=== PATIENT | male | born 1965 | race Two or more races ===

== ENCOUNTER 2023-02-11 10:21 | Outpatient (CLI) | payer OTHER | END 2023-02-11 10:22 | disposition home or self-care (01) | LOC: NUCLEAR 10:21 | PROVIDERS: ATTEND Urology | DX: C64.1 Malignant neoplasm of right kidney, except renal pelvis (principal); C64.2 Malignant neoplasm of left kidney, except renal pelvis ==

== ENCOUNTER 2024-10-21 07:15 | Inpatient (IN) | payer OTHER ==
[~2024-10-21] VITALS: Ht 172.7 cm; Wt 98.9 kg
[2024-10-21] MEDS ORDERED: SYNTHROID125 MCG PO (08:48)
[2024-10-21] MEDS ORDERED: TAMS0.4C PO (08:48)
[2024-10-21 09:09] LABS: BASO % 0.5 % (0.1-1.2); EOS # 0.08 (0.04-0.54); EOS % 1.4 % (0.7-7.0); LYMPH # 1.62 (1.18-3.74); LYMPH % 27.9 % (19.3-53.1); MEAN PLATELET VOLUME 9.80 fl (9.4-12.4); MONO # 0.45 (0.24-0.82); MONO % 7.7 % (4.7-12.5); NEUT # 3.59 (1.56-6.13); NEUT % 61.8 % (34.0-71.1); RED CELL DISTRIBUTION WIDTH 13.0 % (11.6-14.4)
[2024-10-21 09:20] LABS: URINE APPEARANCE Clear; URINE BILIRRUBIN Negative (NEGATIVE); URINE BLOOD Negative; URINE COLOR Yellow; URINE GLUCOSE Negative (NEGATIVE); URINE KETONE Negative (NEGATIVE); URINE LEUKOCYTE Negative; URINE NITRATE Negative; URINE PROTEIN Negative (NEGATIVE); URINE UROBILINOGEN 1.0 E.U./dl
[2024-10-21 09:21] LABS: URINE BACTERIA 4.8 uL (0.0-1933); URINE RBC 3.5 uL (0.0-20.8)
[2024-10-21 09:25] VITALS: BP 108/74
[2024-10-21 09:27] LABS: COVID-19 AG NEGATIVE (NEGATIVE)
[2024-10-21 09:28] LABS: URINE CAST 0.00 uL (0.0-1.40); URINE EPITHELIAL CELLS 0.4 uL (0.0-38.8); URINE WBC 0.9 uL (0.0-23.2)
[2024-10-21 09:30] LABS: INR 1.0
[2024-10-21 10:21] LABS: BUN CREA RATIO 25.0 (7.0-25.0); CREATININE SERUM 0.84 mg/dL (0.70-1.30); GFR 92.89; GLUCOSE FASTING 84.0 mg/dL (65-100); OSMOLALITY SERUM 285.0 MOSM/KG (275-295)
[2024-10-21 11:40] LABS: RH POSITIVE
[2024-10-29] MEDS ORDERED: CEFAZOLIN SODIUM 1,000 MG VIAL IV SCH (09:58)
[2024-10-29] MEDS ORDERED: DEXTROSE 5 %-0.45 % SOD CHLORD 1,000 ML IV SCH (09:59)
[2024-10-29] MEDS ORDERED: ONDANSETRON HCL 2 MG/ML VIAL IV PRN (10:00)
[2024-10-29] MEDS ORDERED: MEPERIDINE HCL/PF 50 MG/ML VIAL IV PRN (10:00)
[2024-10-29] MEDS ORDERED: ENOXAPARIN SODIUM 40 MG/0.4 ML SYRINGE SUBCUTANEO ONE (12:15)
[2024-10-29] MEDS ORDERED: SIMETHICONE 125 MG CAPSULE PO SCH (13:00)
[2024-10-29] MEDS ORDERED: MORPHINE SULFATE 4 MG/ML VIAL IV ONE (16:45)
[2024-10-29] MEDS ORDERED: SUGAMMADEX SODIUM 200 MG/2 ML VIAL IV ONE (16:45)
[2024-10-29] MEDS ORDERED: DOCUSATE SODIUM 100MG CAP PO SCH (17:00)
[2024-10-30 01:16] VITALS: BP 109/61; O2SAT 98
[2024-10-30] MEDS ORDERED: MORPHINE SULFATE 4 MG/ML CARTRIDGE IV PRN (01:45)
[2024-10-30 07:49] LABS: BUN CREA RATIO 17.0 (7.0-25.0); CREATININE SERUM 1.19 mg/dL (0.70-1.30); GFR 62.15; GLUCOSE FASTING 138.0 mg/dL (65-100); OSMOLALITY SERUM 288.0 MOSM/KG (275-295)
[2024-10-30 08:15] LABS: BASO % 0.1 % (0.1-1.2); EOS # 0.00 (0.04-0.54); EOS % 0.0 % (0.7-7.0); LYMPH # 0.64 (1.18-3.74); LYMPH % 6.5 % (19.3-53.1); MEAN PLATELET VOLUME 11.00 fl (9.4-12.4); MONO # 0.89 (0.24-0.82); MONO % 9.0 % (4.7-12.5); NEUT # 8.27 (1.56-6.13); NEUT % 84.0 % (34.0-71.1); RED CELL DISTRIBUTION WIDTH 13.2 % (11.6-14.4)
[2024-10-30 08:51] VITALS: BP 100/68; O2SAT 94
[2024-10-30] MEDS ORDERED: TAMSULOSIN HCL 0.4 MG CAP PO SCH (09:00)
[2024-10-30] MEDS ORDERED: LEVOTHYROXINE SODIUM 125 MCG TABLET PO SCH (09:00)
[2024-10-30] MEDS ORDERED: ACETAMINOPHEN WITH CODEINE 1 UDTAB TABLET PO PRN (13:15)
[2024-10-30] MEDS ORDERED: ENOXAPARIN SODIUM 30 MG/0.3 ML SYRINGE SUBCUTANEO NR (14:00)
[2024-10-30 16:21] VITALS: BP 96/64; O2SAT 94
[2024-10-31 00:30] VITALS: BP 105/62; O2SAT 97
[2024-10-31 07:41] LABS: BUN CREA RATIO 23.0 (7.0-25.0); CREATININE SERUM 1.23 mg/dL (0.70-1.30); GFR 59.82; GLUCOSE FASTING 99.0 mg/dL (65-100); OSMOLALITY SERUM 285.0 MOSM/KG (275-295)
[2024-10-31 08:21] LABS: BASO % 0.2 % (0.1-1.2); EOS # 0.00 (0.04-0.54); EOS % 0.0 % (0.7-7.0); LYMPH # 0.91 (1.18-3.74); LYMPH % 9.7 % (19.3-53.1); MEAN PLATELET VOLUME 11.20 fl (9.4-12.4); MONO # 0.71 (0.24-0.82); MONO % 7.6 % (4.7-12.5); NEUT # 7.71 (1.56-6.13); NEUT % 82.0 % (34.0-71.1); RED CELL DISTRIBUTION WIDTH 13.3 % (11.6-14.4)
[2024-10-31 08:56] VITALS: BP 95/65; O2SAT 94
[2024-10-31] MEDS ORDERED: ACETAMINOPHEN 325 MG TABLET PO NR (14:30)
[2024-10-31 16:13] VITALS: BP 100/66; O2SAT 96
[2024-10-31] MEDS ORDERED: GABAPENTIN 300 MG CAPSULE PO SCH (17:00)
[2024-10-31] MEDS ORDERED: CYCLOBENZAPRINE HCL 5 MG TABLET PO SCH (17:00)
[2024-10-31] MEDS ORDERED: ACETAMINOPHEN 325 MG TABLET PO SCH (20:00)
[2024-11-01 01:01] VITALS: BP 108/69; O2SAT 92
[2024-11-01 08:00] VITALS: BP 119/74
[2024-11-01 08:02] VITALS: BP 119/74; O2SAT 93
== END 2024-11-01 13:58 | disposition home or self-care (01) | DRG 658 ==
LOC: SURH 10-29 07:15 → O/R 10-29 10:11 → SURH 10-29 10:15
PROVIDERS: ADMIT Urology; ATTEND Urology
PROC: 0TB04ZZ Excision of Right Kidney, Percutaneous Endoscopic Approach (ICD-10-PCS; principal; 2024-10-29 10:15)
DX: C64.1 Malignant neoplasm of right kidney, except renal pelvis (principal)

== ENCOUNTER → 2025-01-12 11:29 | Outpatient (CLI) | payer OTHER ==
[~2025-01-12 11:29] MED LIST: SYNTHROID125 MCG PO; TAMS0.4C PO
== END | disposition home or self-care (01) ==
LOC: NUCLEAR 10:30
PROVIDERS: ATTEND Urology
DX: C64.1 Malignant neoplasm of right kidney, except renal pelvis (principal); C64.2 Malignant neoplasm of left kidney, except renal pelvis

== ENCOUNTER 2025-02-21 07:15 | Inpatient (IN) | payer OTHER ==
[~2025-02-21] VITALS: Ht 172.7 cm; Wt 100.7 kg
[2025-02-21 08:22] VITALS: BP 111/78
[2025-02-21 09:14] LABS: BASO % 0.8 % (0.1-1.2); EOS # 0.04 (0.04-0.54); EOS % 0.8 % (0.7-7.0); LYMPH # 1.45 (1.18-3.74); LYMPH % 27.5 % (19.3-53.1); MEAN PLATELET VOLUME 10.40 fl (9.4-12.4); MONO # 0.37 (0.24-0.82); MONO % 7.0 % (4.7-12.5); NEUT # 3.35 (1.56-6.13); NEUT % 63.5 % (34.0-71.1); RED CELL DISTRIBUTION WIDTH 13.6 % (11.6-14.4)
[2025-02-21 09:44] LABS: INR 1.0
[2025-02-21 09:53] LABS: URINE APPEARANCE Clear; URINE BILIRRUBIN Negative (NEGATIVE); URINE BLOOD Negative; URINE COLOR Yellow; URINE GLUCOSE Negative (NEGATIVE); URINE KETONE Negative (NEGATIVE); URINE LEUKOCYTE Negative; URINE NITRATE Negative; URINE PROTEIN Negative (NEGATIVE); URINE UROBILINOGEN 0.2 E.U./dl
[2025-02-21 09:55] LABS: URINE BACTERIA 4.7 uL (0.0-1933); URINE RBC 3.2 uL (0.0-20.8); URINE WBC 2.3 uL (0.0-23.2)
[2025-02-21 09:56] LABS: COVID-19 AG NEGATIVE (NEGATIVE)
[2025-02-21 10:00] LABS: URINE CAST 0.00 uL (0.0-1.40); URINE EPITHELIAL CELLS 1.2 uL (0.0-38.8)
[2025-02-21 10:29] LABS: BUN CREA RATIO 24.0 (7.0-25.0); CREATININE SERUM 0.83 mg/dL (0.70-1.30); GFR 94.19; GLUCOSE FASTING 86.0 mg/dL (65-100); OSMOLALITY SERUM 283.0 MOSM/KG (275-295); PROSTATIC SPECIFIC ANTIGEN 0.776 NG/ML (0.010-4.00)
[2025-03-04] MEDS ORDERED: ENOXAPARIN SODIUM 40 MG/0.4 ML SYRINGE SUBCUTANEO ONE ×2 (07:15→09:00)
[2025-03-04] MEDS ORDERED: OMEGA-3 ACID ETH1 GM (08:47)
[2025-03-04] MEDS ORDERED: CEFAZOLIN SODIUM 1,000 MG VIAL IV ONE (09:00)
[2025-03-04] MEDS ORDERED: MANNITOL 0.2 GM/ML (500ML) IV.SOLN IV ONE (09:13)
[2025-03-04] MEDS ORDERED: SUGAMMADEX SODIUM 200 MG/2 ML VIAL IV ONE (10:56)
[2025-03-04] MEDS ORDERED: DEXTROSE 5 %-0.45 % SOD CHLORD 1,000 ML IV SCH (11:37)
[2025-03-04] MEDS ORDERED: ONDANSETRON HCL 2 MG/ML VIAL IV PRN (11:45)
[2025-03-04] MEDS ORDERED: MORPHINE SULFATE 4 MG/ML VIAL IV PRN (11:45)
[2025-03-04] MEDS ORDERED: SIMETHICONE 125 MG CAPSULE PO SCH (13:00)
[2025-03-04] MEDS ORDERED: CEFAZOLIN SODIUM 1,000 MG VIAL IV SCH (17:00)
[2025-03-04] MEDS ORDERED: DOCUSATE SODIUM 100MG CAP PO SCH (17:00)
[2025-03-04 18:17] VITALS: BP 125/83; O2SAT 94
[2025-03-05 00:30] VITALS: BP 106/61; O2SAT 99
[2025-03-05] MEDS ORDERED: LEVOTHYROXINE SODIUM 125 MCG TABLET PO SCH (06:00)
[2025-03-05 08:54] VITALS: BP 104/66; O2SAT 94
[2025-03-05] MEDS ORDERED: TAMSULOSIN HCL 0.4 MG CAP PO SCH (09:00)
[2025-03-05 09:12] LABS: BASO % 0.1 % (0.1-1.2); EOS # 0.00 (0.04-0.54); EOS % 0.0 % (0.7-7.0); LYMPH # 0.80 (1.18-3.74); LYMPH % 9.2 % (19.3-53.1); MEAN PLATELET VOLUME 11.20 fl (9.4-12.4); MONO # 0.75 (0.24-0.82); MONO % 8.6 % (4.7-12.5); NEUT # 7.09 (1.56-6.13); NEUT % 81.8 % (34.0-71.1); RED CELL DISTRIBUTION WIDTH 14.2 % (11.6-14.4)
[2025-03-05 09:30] LABS: BUN CREA RATIO 20.0 (7.0-25.0); CREATININE SERUM 0.81 mg/dL (0.70-1.30); GFR 96.88; GLUCOSE FASTING 104.0 mg/dL (65-100); OSMOLALITY SERUM 285.0 MOSM/KG (275-295)
[2025-03-05 15:00] VITALS: BP 104/65; O2SAT 90
[2025-03-05] MEDS ORDERED: ACETAMINOPHEN WITH CODEINE 1 UDTAB TABLET PO PRN (15:45)
[2025-03-06 01:49] VITALS: BP 119/78; O2SAT 96
[2025-03-06 08:00] VITALS: BP 111/74; O2SAT 97
== END 2025-03-06 19:00 | disposition home or self-care (01) | DRG 658 ==
LOC: SURH 03-04 06:00 → O/R 03-04 06:00 → SURH 03-04 07:15
PROVIDERS: ADMIT Urology; ATTEND Urology
PROC: 0TB10ZZ Excision of Left Kidney, Open Approach (ICD-10-PCS; principal; 2025-03-04 10:45)
DX: C64.2 Malignant neoplasm of left kidney, except renal pelvis (principal); C64.1 Malignant neoplasm of right kidney, except renal pelvis